=== PATIENT | male | born 1980 | race African-American/Black ===

== ENCOUNTER 2021-06-03 12:47 | Emergency (ER) | payer OTHER ==
[~2021-06-03] VITALS: Ht 190.5 cm; Wt 95.0 kg
[2021-06-03 13:05] VITALS: BP 158/96
[2021-06-03 17:09] LABS: CLARITY,URINE CLEAR (Clear); COLOR,URINE YELLOW (Yellow); GLUCOSE, URINE NEGATIVE (Neg); KETONES,URINE NEGATIVE (Neg); LEUKOCYTE ESTERASE ,URINE NEGATIVE (Neg); NITRITES, URINE NEGATIVE (Neg); OCCULT BLOOD,URINE NEGATIVE (Neg); PROTEIN,URINE NEGATIVE (Neg); UROBILINOGEN,URINE 0.2 E.U/dL (0.2-1.0)
[2021-06-03 17:12] LABS: UA COLLECTION TYPE CLN CATCH MIDSTREAM
[2021-06-03 17:39] LABS: BASOPHILS % (AUTO) 0.5 % (0-1); EOSINOPHILS # (AUTO) 0.4 X10'3 (0-0.9); HEMATOCRIT 44.2 % (42.0-52.0); HEMOGLOBIN 14.7 g/dl (14.0-17.9); LYMPHOCYTES # (AUTO) 2.5 X10'3 (1.1-4.8); LYMPHOCYTES % (AUTO) 30.9 % (21-51); MEAN CORPUSCULAR HEMOGLOBIN 26.3 PG (27.0-31.0); MEAN CORPUSCULAR HGB CONC 33.2 g/dL (33.0-36.5); MEAN CORPUSCULAR VOLUME 79.1 FL (78-98); MEAN PLATELET VOLUME 9.8 FL (7.4-10.4); MONOCYTES # (AUTO) 0.6 X10'3 (0-0.9); MONOCYTES % (AUTO) 7.2 % (2-12); NEUTROPHILS # (AUTO) 4.5 X10'3 (1.8-7.7); NEUTROPHILS % (AUTO) 56.4 % (42-75); PLATELET COUNT 163 X10'3 (140-440); RED BLOOD COUNT 5.59 X10'6 (4.70-6.10); RED CELL DISTRIBUTION WIDTH 14.1 % (11.5-14.5); WHITE BLOOD COUNT 8.1 X10'3 (4.5-11.0)
[2021-06-03 17:51] LABS: HEMOGLOBIN A1C 5.7 % (4.5-6.2)
[2021-06-03 17:53] LABS: ALANINE AMINOTRANSFERASE 35 U/L (12-78); ALBUMIN 3.9 G/DL (3.4-5.0); ALKALINE PHOSPHATASE 84 IU/L (46-116); ANION GAP 9 (8-16); ASPARTATE AMINO TRANSFERASE 17 U/L (10-37); BILIRUBIN,TOTAL 0.4 MG/DL (0.1-1.0); BLOOD UREA NITROGEN 12 MG/DL (7-18); BUN/CREATININE RATIO 11.7 (5.4-32.0); CALCIUM 8.7 MG/DL (8.5-10.1); CHLORIDE 105 MMOL/L (99-107); CREATININE 1.03 MG/DL (0.60-1.10); GLUCOSE 116 MG/DL (70-104); MAGNESIUM 2.1 MG/DL (1.5-2.4); POTASSIUM 3.4 MMOL/L (3.5-5.1); SODIUM 139 MMOL/L (135-145); TOTAL CARBON DIOXIDE 24.6 MMOL/L (24-32); TOTAL PROTEIN 7.9 G/DL (6.4-8.2); eGFR 80 ML/MIN
== END 2021-06-03 19:00 | disposition home or self-care (01) ==
LOC: ER 12:48 → EDBD 12:48 → ER 19:00
DX: R63.1 Polydipsia (principal); Z87.81 Personal history of (healed) traumatic fracture
CPT/HCPCS: 36415; 80053; 81003; 83036; 83735; 85025; 99283

== ENCOUNTER 2021-06-27 20:13 | Emergency (ER) | payer MEDICARE, OTHER ==
[~2021-06-27] VITALS: Ht 190.5 cm; Wt 95.4 kg
[2021-06-27] MEDS ORDERED: PRED20TA PO (21:35)
[2021-06-27] MEDS ORDERED: IBUP-1986 PO (21:35)
[2021-06-27 21:59] VITALS: BP 136/78
== END 2021-06-27 22:03 | disposition home or self-care (01) ==
LOC: ER 20:14
DX: M70.22 Olecranon bursitis, left elbow (principal); M70.21 Olecranon bursitis, right elbow; M79.631 Pain in right forearm; M79.632 Pain in left forearm; Z98.890 Other specified postprocedural states; Z79.899 Other long term (current) drug therapy; Y93.89 Activity, other specified
CPT/HCPCS: 73080; 99283; 99284

== ENCOUNTER 2021-08-23 08:07 | Emergency (ER) | payer BC, MEDICAID ==
[~2021-08-23] VITALS: Ht 190.5 cm; Wt 100.0 kg
[~2021-08-23 08:07] MED LIST: IBUP-1986 PO
[2021-08-23 08:10] VITALS: BP 156/92
--- NOTE | 2021-08-23 08:15 | NUR ---
after triaging the pt,pt sttaed he has substernal cp at this time ,order stat ekg.
[2021-08-23 09:18] LABS: BASOPHILS % (AUTO) 0.5 % (0-1); EOSINOPHILS # (AUTO) 0.5 X10'3 (0-0.9); EOSINOPHILS % (AUTO) 7.3 % (0-6); HEMATOCRIT 44.9 % (42.0-52.0); HEMOGLOBIN 14.5 g/dl (14.0-17.9); LYMPHOCYTES # (AUTO) 2.1 X10'3 (1.1-4.8); LYMPHOCYTES % (AUTO) 32.8 % (21-51); MEAN CORPUSCULAR HEMOGLOBIN 25.7 PG (27.0-31.0); MEAN CORPUSCULAR HGB CONC 32.3 g/dL (33.0-36.5); MEAN CORPUSCULAR VOLUME 79.6 FL (78-98); MEAN PLATELET VOLUME 9.6 FL (7.4-10.4); MONOCYTES # (AUTO) 0.9 X10'3 (0-0.9); MONOCYTES % (AUTO) 14.4 % (2-12); NEUTROPHILS # (AUTO) 2.9 X10'3 (1.8-7.7); PLATELET COUNT 163 X10'3 (140-440); RED BLOOD COUNT 5.65 X10'6 (4.70-6.10); RED CELL DISTRIBUTION WIDTH 13.9 % (11.5-14.5); WHITE BLOOD COUNT 6.4 X10'3 (4.5-11.0)
[2021-08-23 09:30] LABS: ALANINE AMINOTRANSFERASE 35 U/L (12-78); ALBUMIN 3.7 G/DL (3.4-5.0); ALBUMIN/GLOBULIN RATIO 0.8 (1.1-1.5); ALKALINE PHOSPHATASE 84 IU/L (46-116); ANION GAP 6 (8-16); ASPARTATE AMINO TRANSFERASE 29 U/L (10-37); BILIRUBIN,TOTAL 0.4 MG/DL (0.1-1.0); BLOOD UREA NITROGEN 11 MG/DL (7-18); BUN/CREATININE RATIO 10.3 (5.4-32.0); CALCIUM 8.4 MG/DL (8.5-10.1); CHLORIDE 103 MMOL/L (99-107); CREATININE 1.07 MG/DL (0.60-1.10); GLUCOSE 104 MG/DL (70-104); POTASSIUM 3.8 MMOL/L (3.5-5.1); SODIUM 137 MMOL/L (135-145); TOTAL CARBON DIOXIDE 27.8 MMOL/L (24-32); TOTAL PROTEIN 8.1 G/DL (6.4-8.2); eGFR > 90 ML/MIN
== END 2021-08-23 10:14 | disposition home or self-care (01) ==
LOC: ER 08:07
DX: R20.2 Paresthesia of skin (principal); Z87.81 Personal history of (healed) traumatic fracture; Z79.899 Other long term (current) drug therapy
CPT/HCPCS: 36415; 80053; 85025; 93005; 99284

== ENCOUNTER 2021-10-05 03:18 | Emergency (ER) | payer BC, MEDICAID | END 2021-10-05 05:41 | disposition left against medical advice (07) | LOC: ER 03:18 | DX: R06.02 Shortness of breath (principal); Z53.21 Procedure and treatment not carried out due to patient leaving prior to being seen by health care provider | CPT/HCPCS: 93005 ==

== ENCOUNTER → 2021-11-07 20:17 | Emergency (ER) | payer BC, MEDICAID ==
[~2021-11-07] VITALS: Ht 190.5 cm; Wt 101.9 kg
[~2021-11-07 20:17] MED LIST changes: +erythromycin ophthalmic ointment 1gm tube RIGHTEYE ONE
[2021-11-07 20:22] VITALS: BP 129/94
--- NOTE | 2021-11-08 00:34 | NUR ---
topical applied in rt eye
== END | disposition home or self-care (01) ==
LOC: ER 20:17
DX: R51.9 Headache, unspecified (principal); H57.11 Ocular pain, right eye
CPT/HCPCS: 99283

== ENCOUNTER 2021-12-27 06:55 | Emergency (ER) | payer BC, MEDICAID ==
[~2021-12-27] VITALS: Ht 190.5 cm; Wt 95.9 kg
[~2021-12-27 06:55] MED LIST changes: -erythromycin ophthalmic ointment 1gm tube RIGHTEYE ONE
--- NOTE | 2021-12-27 07:05 | NUR ---
Pt c/o cough, sore throat, feeling tired, and occational "feel hot." Lungs clear, speaks in full sentences.
--- NOTE | 2021-12-27 08:39 | NUR ---
Covid-19 is positive. Placed in isolation.
[2021-12-27 08:50] VITALS: BP 136/85
--- NOTE | 2021-12-27 08:52 | NUR ---
Pt and partner given and understands d/c instrucions. Ambulatory with a steady gait.
== END 2021-12-27 08:52 | disposition home or self-care (01) ==
LOC: ER 06:56
DX: U07.1 COVID-19 (principal); R09.81 Nasal congestion; R59.0 Localized enlarged lymph nodes; Z87.81 Personal history of (healed) traumatic fracture
CPT/HCPCS: 87081; 87635; 87880; 99283; C9803

== ENCOUNTER 2023-11-11 10:10 | Emergency (ER) | payer MEDICARE, MEDICAID ==
[~2023-11-11] VITALS: Ht 190.5 cm; Wt 122.0 kg
[2023-11-11 12:50] VITALS: BP 137/98; PULSE 71; RESP 16; TEMP 98.8; O2SAT 98
== END 2023-11-11 12:51 | disposition home or self-care (01) ==
LOC: ER 10:11
DX: M79.604 Pain in right leg (principal); I82.4Z1 Acute embolism and thrombosis of unspecified deep veins of right distal lower extremity; Z79.1 Long term (current) use of non-steroidal anti-inflammatories (NSAID); Z98.890 Other specified postprocedural states
CPT/HCPCS: 93971; 99284